=== PATIENT | female | born 1995 | race African-American/Black ===

== ENCOUNTER 2019-02-16 12:04 | Emergency (ER) | payer BC ==
--- NOTE | 2019-02-16 13:07 | EDM.PDOC ---
ED HPI GENERAL MEDICAL PROBLEM - General Chief Complaint: ENGAGEMENT LIAISON Problem Stated Complaint: IRREGULAR BLEEDING Time Seen by Provider: 02/16/19 12:41 Source of Information: Reports: Patient History Limitations: Reports: No Limitations - History of Present Illness INITIAL COMMENTS - FREE TEXT/NARRATIVE: HISTORY AND PHYSICAL: History of present illness: Patient is a 23-year-old female who presents to the ED today with concern of spotting when she is exposed to be in her control pack. Patient states she recently was switched brands of control when she saw her ENGAGEMENT LIAISON back home. Patient states she is about a week before she was supposed to have her menstrual cycle and is having some slight spotting. Patient states is a small amount of bleeding and only when she wipes. Patient states that she has been the past several days. Patient states she took a test which was negative. Patient states she is here today to ensure she is not . Patient states she has been sexually active and not using any other forms of protection. Patient denies any abdominal pain or any other complaints. Patient denies fever, chills, chest pain, shortness of breath, or cough. Denies headache, neck stiff ness, change in vision, syncope, or near syncope. Denies nausea, vomiting, abdominal pain, diarrhea, constipation, or dysuria. Has not noted any blood in urine or stool. Patient has been eating and drinking appropriately. Review of systems: As per history of present illness and below otherwise all systems reviewed and negative. Past medical history: As per history of present illness and as reviewed below otherwise noncontributory. Surgical history: As per history of present illness and as reviewed below otherwise noncontributory. Social history: See social history for further information Family history: As per history of present illness and as reviewed below otherwise noncontributory. Physical exam: General: Patient is alert, oriented, and in no acute distress. Patient sitting comfortably on exam table. HEENT: Atraumatic, normocephalic, pupils equal and reactive bilaterally, negative for conjunctival pallor or scleral icterus, mucous membranes moist, TMs normal bilaterally, throat clear, neck supple, nontender, trachea midline. No drooling or trismus noted. No meningeal signs. No hot potato voice noted. Lungs: Clear to auscultation, breath sounds equal bilaterally, chest nontender. Heart: S1S2, regular rate and rhythm without overt murmur Abdomen: Soft, nondistended, nontender. Negative for masses or hepatosplenomegaly. Negative for costovertebral tenderness. Pelvis: Stable nontender. Genitourinary: Deferred. Rectal: Deferred. Skin: Intact, warm, dry. No lesions or rashes noted. Extremities: Atraumatic, negative for cords or calf pain. Neurovascular unremarkable. Neuro: Awake, alert, oriented. Cranial nerves II through XII unremarkable. Cerebellum unremarkable. Motor and sensory unremarkable throughout. Exam nonfocal. Notes: Discussed the importance for follow-up with an ENGAGEMENT LIAISON. Voices understanding and is agreeable to plan of care. Denies any further questions or concerns at this time. Diagnostics: UA, urine hCG Therapeutics: None Prescription: None Impression: Abnormal uterine/vaginal bleeding Plan: 1. Follow up with ENGAGEMENT LIAISON as discussed. 2. Return to the ED as needed and as discussed. Definitive disposition and diagnosis as appropriate pending reevaluation and review of above. - Related Data Allergies Allergy/AdvReac Type Severity Reaction Status Date / Time No Known Allergies Allergy Verified 02/16/19 12:19 Home Meds: Home Meds [place] 02/16/19 [History] Past Medical History - Past Health History Medical/Surgical History: Denies Medical/Surgical History Social & Family History - Tobacco Use Smoking Status *Q: Current Every Day Smoker Years of Tobacco use: 6 Packs/Tins Daily: 1 - Caffeine Use Caffeine Use: Reports: None - Recreational Drug Use Recreational Drug Use: No ED ROS GENERAL - Review of Systems Review Of Systems: ROS reveals no pertinent complaints other than HPI. ED EXAM, RENAL/ - Physical Exam Exam: See Below (See dictation) Course - Vital Signs Last Recorded V/S: Last Vital Signs Temp 36.2 C 02/16/19 12:23 Pulse 77 02/16/19 12:23 Resp 16 02/16/19 12:23 BP 190/125 H 02/16/19 12:23 Pulse Ox 100 02/16/19 12:23 - Orders/Labs/Meds Orders: Active Orders 24 hr Category Date Time Status UA W/MICROSCOPIC [URIN] Stat Lab 02/16/19 12:14 Results Labs: Laboratory Tests 02/16/19 02/16/19 Range/Units 12:14 12:14 Urine Color YELLOW Urine Appearance SLT CLOUDY Urine pH 6.5 (5.0-8.0) Ur Specific [place] 1.020 (1.001-1.035) Urine Protein TRACE H (NEGATIVE) mg/dL Urine Glucose (UA) NEGATIVE (NEGATIVE) mg/dL Urine Ketones TRACE H (NEGATIVE) mg/dL Urine Occult Blood LARGE H (NEGATIVE) Urine Nitrite NEGATIVE (NEGATIVE) Urine Bilirubin SMALL H (NEGATIVE) Urine Urobilinogen 2.0 H (<2.0) EU/dL Ur Leukocyte Esterase NEGATIVE (NEGATIVE) Urine HCG, Qual NEGATIVE (NEGATIVE) Departure - Departure Time of Disposition: 13:03 Disposition: Home, Self-Care 01 Clinical Impression: Abnormal uterine and vaginal bleeding, unspecified - Discharge Information Referrals: PCP,None [Primary Care Provider] - Additional Instructions: The following information is given to patients seen in the emergency department who are being discharged to home. This information is to outline your options for follow-up care. We provide all patients seen in our emergency department with a follow-up referral. The need for follow-up, as well as the timing and circumstances, are variable depending upon the specifics of your emergency department visit. If you don't have a primary care physician on staff, we will provide you with a referral. We always advise you to contact your personal physician following an emergency department visit to inform them of the circumstance of the visit and for follow-up with them and/or the need for any referrals to a consulting specialist. The emergency department will also refer you to a specialist when appropriate. This referral assures that you have the opportunity for follow-up care with a specialist. All of these measure are taken in an effort to provide you with optimal care, which includes your follow-up. Under all circumstances we always encourage you to contact your private physician who remains a resource for coordinating your care. When calling for follow-up care, please make the office aware that this follow-up is from your recent emergency room visit. If for any reason you are refused follow-up, please contact the [facility] Emergency Department at and asked to speak to the emergency department charge nurse. [facility] [address] [place] [id number] [facility] [address] [place] [address] [facility] [address] [place] [address] 1. Follow up with ENGAGEMENT LIAISON as discussed. 2. Return to the ED as needed and as discussed. - My Orders Last 24 Hours: My Active Orders 02/16/19 12:14 UA W/MICROSCOPIC [URIN] Stat - Assessment/Plan Last 24 Hours: My Active Orders 02/16/19 12:14 UA W/MICROSCOPIC [URIN] Stat
== END 2019-02-16 13:30 | disposition home or self-care (01) ==
LOC: MW.ED 12:04
DX: N93.9 Abnormal uterine and vaginal bleeding, unspecified (principal); F17.210 Nicotine dependence, cigarettes, uncomplicated
CPT/HCPCS: 81001; 81025; 99282; 99284

== ENCOUNTER 2019-09-17 08:39 | Emergency (ER) | payer BC ==
--- NOTE | 2019-10-18 18:31 | EDM.PDOC ---
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 No identifiable acute change in symptoms for todays emergency department evaluation. No fevers or chills. ROS with no recent constitutional symptoms. Exam HR 83, RR 18, BP 194/139, T 35.9C, SaO2 97% on room air. Gen: Pleasant, nontoxic-appearing, resting comfortably. HEENT: NC, AT, PEERL, EOMI. Resp: Unlabored respirations with a normal work of breathing. Card: Extremities warm and well perfused. GI: Non-distended. : Chaperoned pelvic exam with visually normal female external genitalia. Vaginal canal without lesions or excoriations. Scant physiologic discharge appreciated, no bleeding or purulence. Visually closed cervix. No masses or tenderness on bimanual exam of the fundus or left or right adnexa.No CMT. MSK: No visible deformities, strength and tone without visually appreciable deficit. Neuro: alert and oriented 3, no facial asymmetry, vision and hearing WNL. Heme/Lymph: Deferred Skin: Normal color with no visible lesions (other than noted above). Psych: Mood and affect appropriate. Labs: UA - moderate occult blood, negative nitrate, negative leukocyte esterase, few epithelial cells, rare bacteria. Negative hCG GC pending. Trichomonas, BP, and candidiasis DNA probe pending. MDM Previous chart, nursing note, and vitals reviewed. A: 24-year-old morbidly obese female presents for evaluation of ~3 weeks of vaginal malodorous without discharge or pelvic discomfort, denies dysuria. DDx & Evaluation: pelvic exam declined, no features on external exam, history, ROS, or vitals suggestive of PID. Negative test, UA w/o evidence of infection. Flagyl prescribed. Outpatient follow up recommended. Impression: bacterial vaginosis. - Related Data Allergies Allergy/AdvReac Type Severity Reaction Status Date / Time No Known Allergies Allergy Verified 10/14/19 21:59 Home Meds: Home Meds Labetalol [Normodyne] 09/17/19 [History] Past Medical History - Past Health History Medical/Surgical History: Denies Medical/Surgical History Cardiovascular History: Reports: Hypertension - Infectious Disease History Infectious Disease History: Reports: Chicken Pox Social & Family History - Family History Family Medical History: Noncontributory - Tobacco Use Smoking Status *Q: Never Smoker - Caffeine Use Caffeine Use: Reports: None - Recreational Drug Use Recreational Drug Use: No ED ROS GENERAL - Review of Systems Review Of Systems: See Below ED EXAM, GENERAL - Physical Exam Exam: See Below Course - Vital Signs Last Recorded V/S: Last Vital Signs Temp 35.9 C 09/17/19 08:48 Pulse 83 09/17/19 08:48 Resp 18 09/17/19 08:48 BP 194/139 H 09/17/19 08:48 Pulse Ox 97 09/17/19 08:48 - Orders/Labs/Meds Labs: Laboratory Tests 09/17/19 09/17/19 09/17/19 Range/Units 09:05 09:16 09:50 Urine Color YELLOW Urine Appearance CLEAR Urine pH 6.0 (5.0-8.0) Ur Specific [place] >= 1.030 (1.001-1.035) Urine Protein NEGATIVE (NEGATIVE) mg/dL Urine Glucose (UA) NEGATIVE (NEGATIVE) mg/dL Urine Ketones NEGATIVE (NEGATIVE) mg/dL Urine Occult Blood MODERATE H (NEGATIVE) Urine Nitrite NEGATIVE (NEGATIVE) Urine Bilirubin NEGATIVE (NEGATIVE) Urine Urobilinogen 0.2 (<2.0) EU/dL Ur Leukocyte Esterase NEGATIVE (NEGATIVE) Urine RBC 2-4 (0-2/HPF) Urine WBC 0-1 (0-5/HPF) Ur Epithelial Cells FEW (NONE-FEW) Urine Bacteria RARE (NEGATIVE) Urine HCG, Qual NEGATIVE (NEGATIVE) Ava species DNA NEGATIVE (NEGATIVE) Chlamydia/GC Source C.trachomatis RNA (TMA) (Negative) Gardnerella DNA Probe POSITIVE H (NEGATIVE) N.gonorrhoeae RNA (TMA) (Negative) Trichomonas DNA Probe NEGATIVE (NEGATIVE) 09/17/19 Range/Units 09:50 Urine Color Urine Appearance Urine pH (5.0-8.0) Ur Specific [place] (1.001-1.035) Urine Protein (NEGATIVE) mg/dL Urine Glucose (UA) (NEGATIVE) mg/dL Urine Ketones (NEGATIVE) mg/dL Urine Occult Blood (NEGATIVE) Urine Nitrite (NEGATIVE) Urine Bilirubin (NEGATIVE) Urine Urobilinogen (<2.0) EU/dL Ur Leukocyte Esterase (NEGATIVE) Urine RBC (0-2/HPF) Urine WBC (0-5/HPF) Ur Epithelial Cells (NONE-FEW) Urine Bacteria (NEGATIVE) Urine HCG, Qual (NEGATIVE) Ava species DNA (NEGATIVE) Chlamydia/GC Source GENITAL C.trachomatis RNA (TMA) Negative (Negative) Gardnerella DNA Probe (NEGATIVE) N.gonorrhoeae RNA (TMA) Negative (Negative) Trichomonas DNA Probe (NEGATIVE) Departure - Departure Time of Disposition: 09:00 Disposition: Home, Self-Care 01 Clinical Impression: Bacterial vaginosis - Discharge Information *PRESCRIPTION DRUG MONITORING PROGRAM REVIEWED*: Not Applicable *COPY OF PRESCRIPTION DRUG MONITORING REPORT IN PATIENT MARKOS: Not Applicable Instructions: Bacterial Vaginosis, [id number] Referrals: PCP,None [Primary Care Provider] - Forms: ED Department Discharge Additional Instructions: The following information is given to patients seen in the emergency department who are being discharged to home. This information is to outline your options for follow-up care. We provide all patients seen in our emergency department with a follow-up referral. The need for follow-up, as well as the timing and circumstances, are variable depending upon the specifics of your emergency department visit. If you don't have a primary care physician on staff, we will provide you with a referral. We always advise you to contact your personal physician following an emergency department visit to inform them of the circumstance of the visit and for follow-up with them and/or the need for any referrals to a consulting specialist. The emergency department will also refer you to a specialist when appropriate. This referral assures that you have the opportunity for follow-up care with a specialist. All of these measure are taken in an effort to provide you with optimal care, which includes your follow-up. Under all circumstances we always encourage you to contact your private physician who remains a resource for coordinating your care. When calling for follow-up care, please make the office aware that this follow-up is from your recent emergency room visit. If for any reason you are refused follow-up, please contact the [facility] Emergency Department at and asked to speak to the emergency department charge nurse. [facility] [address] [place] [id number] [id number] The following information is given to patients seen in the emergency department who are being discharged to home. This information is to outline your options for follow-up care. We provide all patients seen in our emergency department with a follow-up referral. The need for follow-up, as well as the timing and circumstances, are variable depending upon the specifics of your emergency department visit. If you don't have a primary care physician on staff, we will provide you with a referral. We always advise you to contact your personal physician following an emergency department visit to inform them of the circumstance of the visit and for follow-up with them and/or the need for any referrals to a consulting specialist. The emergency department will also refer you to a specialist when appropriate. This referral assures that you have the opportunity for follow-up care with a specialist. All of these measure are taken in an effort to provide you with optimal care, which includes your follow-up. Under all circumstances we always encourage you to contact your private physician who remains a resource for coordinating your care. When calling for follow-up care, please make the office aware that this follow-up is from your recent emergency room visit. If for any reason you are refused follow-up, please contact the [facility] Emergency Department at and asked to speak to the emergency department charge nurse. [facility] [address] [place] [id number] [address] 1. No sexual intercourse while taking the Flagyl. Avoid alcohol with this medication 2. Follow up with your OBGYN 3. Return to the ED as needed and as discussed. Sepsis Event Note - Evaluation Sepsis Screening Result: No Definite Risk
== END 2019-09-17 11:51 | disposition home or self-care (01) ==
LOC: MW.ED 08:39
DX: N76.0 Acute vaginitis (principal); B96.89 Other specified bacterial agents as the cause of diseases classified elsewhere; I10 Essential (primary) hypertension
CPT/HCPCS: 81001; 81025; 87480; 87491; 87510; 87591; 87660; 99283

== ENCOUNTER 2019-10-14 21:40 | Emergency (ER) | payer BC ==
[2019-10-14] MEDS ORDERED: Labetalol 100 MG Tab PO ONE (22:08)
--- NOTE | 2019-10-14 22:11 | EDM.PDOC ---
ED HPI GENERAL MEDICAL PROBLEM - General Chief Complaint: Cardiovascular Problem Stated Complaint: MED CLEARANCE/BLOOD PRESSURE Time Seen by Provider: 10/14/19 21:59 - History of Present Illness INITIAL COMMENTS - FREE TEXT/NARRATIVE: HISTORY AND PHYSICAL: History of present illness: The patient is a 24-year-old female who presents for medical clearance with police. According to the history and the computer the patient was seen in our family practice clinic after referral from the women[facility] clinic for hypertension. The note from the clinic provider has been reviewed by me and on that visit her blood pressure was 160/115 and 156/100. She was fully evaluated and had labs done including CBC CMP and a UA which were within normal limits and the patient was started on labetalol 100 mg twice daily. That medication was chosen because this patient had told the provider she wanted to get in the near future. She was supposed to follow-up in the clinic and she did not follow-up. She says that she does not take her medication daily and in fact has not taken any meds in the last 2 days and only has 2 pills left. She says that this evening she would not be here in the ED for medical problems if the officer did not insist. She has no headache blurred vision chest pain or shortness of breath no extremity edema no abdominal pain nausea vomiting or difficulty urinating. She has had no upper respiratory symptoms or fevers. She is eating and drinking normally. She is not dizzy or lightheaded and does not have a headache currently in the ED. The patient was also in the ED on September 17 and on that visit had a blood pressure of 194/139. From the computer it appears that she did not see your provider but did provide a urine test. There is no provider note. Review of systems: As per history of present illness and below otherwise all systems reviewed and negative. Past medical history: As per history of present illness and as reviewed below otherwise noncontributory. Surgical history: As per history of present illness and as reviewed below otherwise noncontributory. Social history: No reported history of drug or alcohol abuse. Family history: As per history of present illness and as reviewed below otherwise noncontributory. Physical exam: General: Well-developed well-nourished female who is overweight and nontoxic and cooperative and interactive. Vital signs are noted by me HEENT: Atraumatic, normocephalic, pupils reactive, negative for conjunctival pallor or scleral icterus, mucous membranes moist, throat clear, neck supple, nontender, trachea midline. Lungs: Clear to auscultation, breath sounds equal bilaterally, chest nontender. Heart: S1S2, regular, negative for clicks, rubs, or JVD. Abdomen: Soft, nondistended, nontender. Negative for masses or hepatosplenomegaly. Negative for costovertebral tenderness. Pelvis: Stable nontender. Genitourinary: Deferred. Rectal: Deferred. Extremities: Atraumatic, negative for cords or calf pain. Neurovascular unremarkable. No pedal edema or leg asymmetry Neuro: Awake, alert, oriented. Cranial nerves II through XII unremarkable. Cerebellum unremarkable. Motor and sensory unremarkable throughout. Exam nonfocal. Diagnostics: EKG Therapeutics: Labetalol by mouth I discussed with the patient that her blood pressure has been consistently elevated even as far back as July and that we would not be able to emergently lower that in the ED as it would not be safe or prudent. I have given her a dose of her labetalol here but have advised her that she does need to be seen in our clinic to get follow-up as this may not be the right drug for her but that she needs to be taking it regularly and compliantly in order to determine that. We also talked about dietary restrictions of sodium and salt. Currently she has absolutely no endorgan symptomatology and would not be here other than at the insistence of the officer and does not want further evaluation. She is agreeable to take a dose of her labetalol and the officer is telling me that she would likely be bonded out by the morning. I will give her a prescription for 7 days of her labetalol so that she does not run out and we will place her name on the expedited follow-up list so that she can be seen in the next 1 to 2 days and readdress her medications and blood pressure with her provider. The patient states understanding Impression: Counter for medical screening exam, hypertension noncompliant Definitive disposition and diagnosis as appropriate pending reevaluation and review of above. - Related Data Allergies Allergy/AdvReac Type Severity Reaction Status Date / Time No Known Allergies Allergy Verified 10/14/19 21:59 Home Meds: Home Meds Labetalol [Normodyne] 09/17/19 [History] Past Medical History - Past Health History Medical/Surgical History: Denies Medical/Surgical History Cardiovascular History: Reports: Hypertension - Infectious Disease History Infectious Disease History: Reports: Chicken Pox Social & Family History - Family History Family Medical History: Noncontributory - Tobacco Use Smoking Status *Q: Never Smoker - Caffeine Use Caffeine Use: Reports: None - Recreational Drug Use Recreational Drug Use: No ED ROS GENERAL - Review of Systems Review Of Systems: Comprehensive ROS is negative, except as noted in HPI. ED EXAM, GENERAL - Physical Exam Exam: See Below (See dictation) Course - Vital Signs Last Recorded V/S: Last Vital Signs Temp 36.1 C 10/14/19 22:00 Pulse 90 10/14/19 22:00 Resp 20 10/14/19 22:00 BP 214/146 H 10/14/19 22:00 Pulse Ox 100 10/14/19 22:00 - Orders/Labs/Meds Orders: Active Orders 24 hr Category Date Time Status EKG Documentation Completion [RC] STAT Care 10/14/19 22:07 Active Meds: Medications Discontinued Medications Generic Name Dose Route Start Last Admin Trade Name Freq PRN Reason Stop Dose Admin Labetalol HCl 100 mg 10/14/19 22:08 Normodyne PO 10/14/19 22:09 ONETIME ONE Departure - Departure Time of Disposition: 22:16 Disposition: Home, Self-Care 01 Reason for Transfer *Q: Primary PCI Indicated Condition: Good Clinical Impression: Poorly-controlled hypertension, Encounter for medical screening examination Referrals: PCP,None [Primary Care Provider] - Forms: ED Department Discharge Additional Instructions: The following information is given to patients seen in the emergency department who are being discharged to home. This information is to outline your options for follow-up care. We provide all patients seen in our emergency department with a follow-up referral. The need for follow-up, as well as the timing and circumstances, are variable depending upon the specifics of your emergency department visit. If you don't have a primary care physician on staff, we will provide you with a referral. We always advise you to contact your personal physician following an emergency department visit to inform them of the circumstance of the visit and for follow-up with them and/or the need for any referrals to a consulting specialist. The emergency department will also refer you to a specialist when appropriate. This referral assures that you have the opportunity for followup care with a specialist. All of these measure are taken in an effort to provide you with optimal care, which includes your followup. Under all circumstances we always encourage you to contact your private physician who remains a resource for coordinating your care. When calling for followup care, please make the office aware that this follow-up is from your recent emergency room visit. If for any reason you are refused follow-up, please contact the [facility] emergency department at and ask to speak to the emergency department charge nurse. [facility] Primary care- [place] [address] He is watch of the sodium and salt in your diet and avoid caffeinated drinks to help with your blood pressure. Please fill the prescription you have been given for your meds and take them as directed twice a day. Please call the clinic first thing in the morning and schedule a follow-up appointment with your provider or 1 of his associates to reevaluate your blood pressure medications and get you on a regimen that will work. Return to ER as needed and as discussed Sepsis Event Note - Evaluation Sepsis Screening Result: No Definite Risk - Focused Exam Vital Signs: Vital Signs Temp Pulse Resp BP Pulse Ox 10/14/19 22:00 36.1 C 90 20 214/146 H 100 Date Exam was Performed: 10/14/19 Time Exam was Performed: 22:12 - My Orders Last 24 Hours: My Active Orders 10/14/19 22:07 EKG Documentation Completion [RC] STAT - Assessment/Plan Last 24 Hours: My Active Orders 10/14/19 22:07 EKG Documentation Completion [RC] STAT
== END 2019-10-14 22:30 | disposition home or self-care (01) ==
LOC: MW.ED 21:40
DX: I10 Essential (primary) hypertension (principal); Z02.89 Encounter for other administrative examinations
CPT/HCPCS: 93005; 99283; A9270